=== PATIENT | female | born 2005 | race Caucasian/White ===

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

== ENCOUNTER → 2023-05-14 | Outpatient (CLI) | payer BC ==
[~2023-05-14] MED LIST changes: +BENTYL 20MG20 MG/TAB PO; +CRUTCHES MC; +K-DUR20 MEQ PO; +REGLAN 10MG10 MG/TAB PO
== END ==
LOC: COL.CARD 09:20
DX: R06.02 Shortness of breath (principal)